=== PATIENT | female | born 1955 | race Caucasian/White ===

== ENCOUNTER 2018-11-16 14:24 | Emergency (ER) | payer OTHER ==
[2018-11-16 14:33] VITALS: BP 154/82; PULSE 76; TEMP 98.4; BMI 36.6
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
== END 2018-11-16 16:57 | disposition home or self-care (01) ==
LOC: JERFT 14:24
DX: R51 Headache (principal)
CPT/HCPCS: 70450-TC; 99281-25

== ENCOUNTER 2019-02-16 16:42 | Emergency (ER) | payer OTHER ==
--- NOTE | 2019-02-16 16:58 | PDOC ---
Rapid Medical Evaluation Time Seen by Provider: 02/16/19 16:57 Medical Evaluation: Allergies Allergy/AdvReac Type Severity Reaction Status Date / Time gabapentin AdvReac Severe Swelling Verified 02/16/19 16:56 02/16/19 16:57 HPI: R sided jaw pain with chewing x 1 day PE: No gross deficits ORDERS: Nothing Discharge Disposition - Diagnosis TMJ (temporomandibular joint syndrome) - Referrals - Patient Instructions - Post Discharge Activity
[2019-02-16 17:00] VITALS: BP 138/80; PULSE 74; TEMP 98.2; BMI 32.9
[2019-02-16] MEDS ORDERED: NAPROXEN 500 MG TABLET (FP) PO ONE (17:24)
[2019-02-16] MEDS ORDERED: NAPROXEN 500 MG TABLET (FP) ONE (17:25)
--- NOTE | 2019-02-16 18:02 | PDOC ---
History of Present Illness - General Chief Complaint: Pain Stated Complaint: PAIN Time Seen by Provider: 02/16/19 16:57 History Source: Patient Exam Limitations: No Limitations - History of Present Illness Initial Comments: 02/16/19 18:04 HISTORY OF PRESENT ILLNESS: This 64-year-old woman denies medical history presents emergency department for evaluation of right-sided jaw pain progressing over 2 days. Patient states pain worsens when she tries to eat or chew on solid foods. She reports the pain prevents her mouth from closing correctly. Patient reports she cries her teeth which she feels nervous and has been under a lot of psychological stress lately. Patient is unaware if she is grinding her teeth but reports in the past she has had similar pains from grinding her teeth. She denies fevers or chills. No recent travel or sick contacts. PAST MEDICAL HISTORY: Denies past medical history SURGICAL HISTORY: Denies ALLERGIES: No known drug allergies REVIEW OF SYSTEMS General/Constitutional: Denies fever or chills. Denies weakness, weight change. HEENT: see HPI Cardiovascular: Denies chest pain or shortness of breath. Respiratory: Denies cough, wheezing, or hemoptysis. Gastrointestinal: Denies nausea, vomiting, diarrhea or constipation. Denies rectal bleeding. Genitourinary: Denies dysuria, frequency, or change in urination. Musculoskeletal: Denies joint or muscle swelling or pain. Denies neck or back pain. Skin and breasts: Denies rash or easy bruising. Neurologic: Denies headache, vertigo, loss of consciousness, or loss of sensation. Psychiatric: Denies depression or anxiety. Endocrine: Denies increased thirst. Denies abnormal weight change. Hematologic/Lymphatic: Denies anemia, easy bleeding, or history of blood clots. Allergic/Immunologic: Denies hives or skin allergy. Denies latex allergy. PHYSICAL EXAM General Appearance: Well-appearing, appropriately dressed. No apparent distress , no intoxication. HEENT: EOMI, PERRLA, normal ENT inspection, normal voice, TMs normal, pharynx normal. No conjunctival pallor. No photophobia, scleral icterus. Taking rates amendable and 1 solid unit. No deformities, crepitus or step offs present upon palpation of the mandible. Tenderness over the masseter muscle from insertion point of the mandible to zygoma. Neck: Supple. Trachea midline. No tenderness, rigidity, carotid bruit, stridor , lymphadenopathy, or thyromegaly. Respiratory/Chest: Lungs CTAB. No shortness of breath, chest tenderness, respiratory distress, accessory muscle use. No crackles, rales, rhonchi, stridor , wheezing, dullness Cardiovascular: RRR. S1, S2. No JVD, murmur, bradycardia, tachycardia. Musculoskeletal/Extremities: Normal inspection. FROM of all extremities, normal capillary refill. Pelvis Stable. No CVA tenderness. No tenderness to extremities, pedal edema, swelling, erythema or deformity. Neurologic: mill operator helper II-XII intact. Fully oriented, alert. Appropriate mood/affect. Motor strength 5/5. No appreciable EOM palsy, facial droop or sensory deficit. Past History - Past Medical History Allergies/Adverse Reactions: Allergies Allergy/AdvReac Type Severity Reaction Status Date / Time gabapentin AdvReac Severe Swelling Verified 02/16/19 16:56 Home Medications: Ambulatory Orders Butalb/Acetaminophen/Caffeine [Fioricet 50-300-40 mg Capsule] 1 each PO Q6H PRN #20 capsule 11/16/18 Loratadine 10 mg PO DAILY #10 capsule 11/16/18 COPD: No - Surgical History Abdominal Surgery: Yes (X2 hernia repair) - Suicide/Smoking/Psychosocial Hx Smoking Status: No Smoking History: Never smoked Number of Cigarettes Smoked Daily: 0 Hx Alcohol Use: No Drug/Substance Use Hx: No *Physical Exam - Vital Signs Last Vital Signs Temp Pulse Resp BP Pulse Ox 98.2 F 74 18 138/80 99 02/16/19 16:57 02/16/19 16:57 02/16/19 16:57 02/16/19 16:57 02/16/19 16:57 Medical Decision Making - Medical Decision Making 02/16/19 18:02 A/P: 64-year-old woman with TMJ pain disorder Naprosyn 500 mg orally now Discharge home instructions for rest, soft diet and follow-up with dentist for grinding of her teeth *DC/Admit/Observation/Transfer Diagnosis at time of Disposition: TMJ (temporomandibular joint syndrome) - Discharge Dispostion Disposition: HOME Condition at time of disposition: Fair Decision to Admit order: No - Referrals - Patient Instructions Additional Instructions: Take Aleve as directed by manufacturers instructions. Take this medicine twice a day and to not take Motrin while taking this medicine. Eat soft foods until pain has resolved. Avoid chewing gum. Try chewing on the left side of her mouth. If symptoms do not improve in 7 days call your dentist for reevaluation. Thank you very much for choosing us to provide your emergent health care needs. - Post Discharge Activity
== END 2019-02-16 17:27 | disposition home or self-care (01) ==
LOC: JERFT 16:42
DX: M26.609 Unspecified temporomandibular joint disorder, unspecified side (principal)
CPT/HCPCS: 99281-25

== ENCOUNTER 2021-11-18 04:04 | Inpatient (IN) | payer OTHER ==
[2021-11-18] MEDS ORDERED: ONDANSETRON 4 MG/2 ML VIAL IVPUSH ONE (04:06)
[2021-11-18] MEDS ORDERED: KETOROLAC TROMETHAMINE 15 MG/ML VIAL IVPUSH ONE (04:06)
[2021-11-18] MEDS ORDERED: SODIUM CHLORIDE 0.9% 500 ML INFUS.BAG IV ONE (04:06)
[2021-11-18] MEDS ORDERED: FAMOTIDINE 20 MG/50 ML IVPB 20 MG/50 ML MG IVPB ONE (04:07)
[2021-11-18] MEDS ORDERED: ONDANSETRON 4 MG/2 ML VIAL ONE (04:14)
[2021-11-18] MEDS ORDERED: KETOROLAC TROMETHAMINE 15 MG/ML VIAL ONE (04:14)
[2021-11-18] MEDS ORDERED: FAMOTIDINE/PF 20 MG/2 ML VIAL ONE (04:16)
[2021-11-18 04:48] LABS: BASO % 0.4 % (0-2.0); HEMATOCRIT 40.1 % (32.4-45.2); HEMOGLOBIN 13.5 GM/dL (10.7-15.3); LYMPH % 5.1 % (8-40); MCH 30.3 pg (25.7-33.7); MCHC 33.6 g/dl (32.0-36.0); MEAN PLT VOLUME 8.9 fl (7.5-11.1); MONO % 5.8 % (3.8-10.2); NEUT % 87.7 % (42.8-82.8); PLATELET COUNT 291 10^3/uL (134-434); RBC 4.46 M/mm3 (3.60-5.2); RDW 14.7 % (11.6-15.6)
[2021-11-18 05:06] LABS: BLOOD UREA NITROGEN 27.4 mg/dL (7-18); CALCIUM 9.4 mg/dL (8.5-10.1)
[2021-11-18 05:07] LABS: ALBUMIN 3.4 g/dl (3.4-5.0)
[2021-11-18 05:09] LABS: CREATININE 0.9 mg/dL (0.55-1.3)
[2021-11-18 05:11] LABS: BILIRUBIN,TOTAL 0.5 mg/dL (0.2-1)
[2021-11-18] MEDS ORDERED: ACETAMINOPHEN 1000 MG/100 ML BAG IVPB PRN (12:16)
[2021-11-18] MEDS ORDERED: ACETAMINOPHEN 1000 MG/100 ML BAG IVPB ONE (12:49)
[2021-11-18] MEDS ORDERED: ACETAMINOPHEN INJECTION 100 ML IVPB ONE (12:56)
[2021-11-18] MEDS ORDERED: ONDANSETRON 4 MG/2 ML VIAL IVPUSH PRN (18:31)
[2021-11-18] MEDS: SODIUM CHLORIDE 1,000 ML IV SCH (23:52)
[2021-11-19] MEDS ORDERED: LEVOTHYROXINE NA 25 MCG TABLET (FP) PO SCH (07:00)
[2021-11-19 09:16] LABS: HEMATOCRIT 35.8 % (32.4-45.2); HEMOGLOBIN 12.1 GM/dL (10.7-15.3); MCH 30.4 pg (25.7-33.7); MCHC 33.8 g/dl (32.0-36.0); MEAN PLT VOLUME 8.6 fl (7.5-11.1); PLATELET COUNT 257 10^3/uL (134-434); RBC 3.98 M/mm3 (3.60-5.2); RDW 14.7 % (11.6-15.6)
[2021-11-19 09:33] LABS: BLOOD UREA NITROGEN 19.9 mg/dL (7-18); CALCIUM 8.5 mg/dL (8.5-10.1)
[2021-11-19 09:36] LABS: ALBUMIN 2.5 g/dl (3.4-5.0); CREATININE 0.7 mg/dL (0.55-1.3)
[2021-11-19 09:38] LABS: BILIRUBIN,TOTAL 0.4 mg/dL (0.2-1); TOT PROT 5.5 g/dl (6.4-8.2)
[2021-11-19] MEDS: LEVOTHYROXINE SODIUM 100 MCG VIAL IVPUSH SCH (09:40)
[2021-11-19] MEDS ORDERED: CEFAZOLIN 2 GM in DEXTROSE 5%-WATER - 100 ML IVPB SCH (10:00)
[2021-11-19] MEDS ORDERED: PREGABALIN 50 MG CAPSULE PO SCH (10:00)
[2021-11-19] MEDS ORDERED: PATIENT'S OWN MEDICATION (NON-FORMULARY) (Atogepant [Qulipta] 60 MG Tablet) PO SCH (10:00)
[2021-11-19] MEDS ORDERED: ceFAZolin 2 GRAM PREMIX BAG IVPB SCH (10:00)
[2021-11-19] MEDS: SODIUM CHLORIDE 1,000 ML IV SCH ×3 (11:21→18:11)
[2021-11-19] MEDS ORDERED: LACTATED RINGERS SOLUTION 1,000 ML/1,000 ML INFUS.BAG IV SCH (14:15)
[2021-11-19] MEDS ORDERED: BACLOFEN 10 MG TABLET (FP) PO PRN (15:56)
[2021-11-20 09:18] LABS: BASO % 0.5 % (0-2.0); HEMATOCRIT 39.9 % (32.4-45.2); HEMOGLOBIN 13.2 GM/dL (10.7-15.3); LYMPH % 37.9 % (8-40); MCH 30.1 pg (25.7-33.7); MCHC 33.1 g/dl (32.0-36.0); MEAN PLT VOLUME 9.2 fl (7.5-11.1); NEUT % 49.6 % (42.8-82.8); PLATELET COUNT 295 10^3/uL (134-434); RBC 4.38 M/mm3 (3.60-5.2); RDW 14.4 % (11.6-15.6); WHITE BLOOD COUNT 3.3 K/mm3 (4.0-10.0)
[2021-11-20 09:44] LABS: CALCIUM 9.5 mg/dL (8.5-10.1)
[2021-11-20 09:45] LABS: BLOOD UREA NITROGEN 10.6 mg/dL (7-18)
[2021-11-20 09:49] LABS: CREATININE 0.7 mg/dL (0.55-1.3)
[2021-11-20 09:50] LABS: BILIRUBIN,TOTAL 0.3 mg/dL (0.2-1); TOT PROT 6.5 g/dl (6.4-8.2)
[2021-11-20] MEDS ORDERED: PREGABALIN 50 MG CAPSULE PO SCH (10:00)
[2021-11-20 10:05] LABS: ALBUMIN 3.1 g/dl (3.4-5.0)
[2021-11-20] MEDS: LEVOTHYROXINE SODIUM 100 MCG VIAL IVPUSH SCH (10:27)
[2021-11-20] MEDS ORDERED: PROPOFOL 20 ML ONE (11:46)
[2021-11-20] MEDS ORDERED: DEXAMETHASONE SOD PHOSPHATE 4 MG/1 ML VIAL ONE (11:46)
[2021-11-20] MEDS ORDERED: LIDOCAINE HCL/PF 2% SDV 5ML VIAL ONE (11:46)
[2021-11-20] MEDS ORDERED: ONDANSETRON 4 MG/2 ML VIAL ONE (11:46)
[2021-11-20] MEDS ORDERED: MIDAZOLAM HCL 2 MG/2 ML SINGLE DOSE VIAL ONE (11:47)
[2021-11-20] MEDS ORDERED: ROCURONIUM BROMIDE 100 MG/10 ML VIAL ONE (11:50)
[2021-11-20] MEDS ORDERED: BUPIVACAINE HCL/PF 0.5% (5MG/ML) 10 ML VIAL ONE (12:00)
[2021-11-20] MEDS ORDERED: BUPIVACAINE HCL/PF 0.5% (5MG/ML) 10 ML VIAL IJ ONE (12:42)
[2021-11-20] MEDS ORDERED: NEOSTIGMINE METHYLSULFATE 0.5 MG/ML - 10 ML MDV ONE (13:28)
[2021-11-20] MEDS ORDERED: BACLOFEN 10 MG TABLET (FP) PO PRN (15:02)
[2021-11-20] MEDS ORDERED: ONDANSETRON 4 MG/2 ML VIAL IVPUSH PRN ×2 (15:02→15:07)
[2021-11-20] MEDS ORDERED: LACTATED RINGERS SOLUTION 1,000 ML IV SCH (15:15)
[2021-11-20 17:12] VITALS: BMI 36.8
[2021-11-20] MEDS ORDERED: PANTOPRAZOLE SODIUM 40 MG VIAL IVPUSH ONE (17:52)
[2021-11-20] MEDS: SODIUM CHLORIDE 1,000 ML IV SCH ×2 (17:55→18:05)
[2021-11-20] MEDS: KETOROLAC TROMETHAMINE 15 MG/ML VIAL IVPUSH PRN (18:05)
[2021-11-20] MEDS ORDERED: ACETAMINOPHEN 500 MG TABLET (FP) PO PRN (20:30)
[2021-11-21] MEDS: SODIUM CHLORIDE 1,000 ML IV SCH (04:59)
[2021-11-21] MEDS: KETOROLAC TROMETHAMINE 15 MG/ML VIAL IVPUSH PRN ×2 (05:01→12:08)
[2021-11-21 09:57] LABS: BASO % 0.3 % (0-2.0); EOS % 0.2 % (0-4.5); HEMATOCRIT 33.9 % (32.4-45.2); HEMOGLOBIN 11.6 GM/dL (10.7-15.3); LYMPH % 27.6 % (8-40); MCH 30.8 pg (25.7-33.7); MCHC 34.2 g/dl (32.0-36.0); MEAN PLT VOLUME 8.7 fl (7.5-11.1); MONO % 9.4 % (3.8-10.2); NEUT % 62.5 % (42.8-82.8); PLATELET COUNT 248 10^3/uL (134-434); RBC 3.77 M/mm3 (3.60-5.2); RDW 14.4 % (11.6-15.6); WHITE BLOOD COUNT 6.2 K/mm3 (4.0-10.0)
[2021-11-21] MEDS: PANTOPRAZOLE 40 MG TABLET PO SCH (10:18)
[2021-11-21 10:20] LABS: CALCIUM 8.8 mg/dL (8.5-10.1)
[2021-11-21 10:21] LABS: ALBUMIN 2.5 g/dl (3.4-5.0); BLOOD UREA NITROGEN 12.6 mg/dL (7-18)
[2021-11-21 10:24] LABS: CREATININE 0.7 mg/dL (0.55-1.3)
[2021-11-21 10:26] LABS: BILIRUBIN,TOTAL 0.3 mg/dL (0.2-1); TOT PROT 5.4 g/dl (6.4-8.2)
[2021-11-21] MEDS: LEVOTHYROXINE SODIUM 100 MCG VIAL IVPUSH SCH (11:42)
[2021-11-21] MEDS: oxyCODONE HCL 5 MG TABLET PO PRN (19:46)
[2021-11-22] MEDS: oxyCODONE HCL 5 MG TABLET PO PRN ×2 (01:16→10:22)
[2021-11-22 07:00] VITALS: TEMP 98.6
[2021-11-22 10:18] VITALS: BP 137/64; PULSE 65
[2021-11-22] MEDS: PANTOPRAZOLE 40 MG TABLET PO SCH (10:22)
[2021-11-22] MEDS: LEVOTHYROXINE SODIUM 100 MCG VIAL IVPUSH SCH ×2 (10:23→10:31)
== END 2021-11-22 14:00 | disposition home or self-care (01) | DRG 418 ==
LOC: JER 04:04 → JERBED 10:51 → INTOOBSV 10:51 → UNDOADMOB 10:51 → JERBED 14:41 → J8W 20:37 → OBSVTOIN 11-19 12:46
PROVIDERS: ADMIT Internal Medicine; ATTEND Internal Medicine
PROC: 0FT44ZZ Resection of Gallbladder, Percutaneous Endoscopic Approach (ICD-10-PCS; principal; 2021-11-20 11:30)
DX: K81.0 Acute cholecystitis (principal); K82.1 Hydrops of gallbladder; E03.9 Hypothyroidism, unspecified; G43.909 Migraine, unspecified, not intractable, without status migrainosus; R11.2 Nausea with vomiting, unspecified; K76.89 Other specified diseases of liver; N85.8 Other specified noninflammatory disorders of uterus
CPT/HCPCS: 36415; 71045-TC-FY; 74177-TC; 76705-TC; 78226-TC; 80053; 83605; 83690; 84484; 85025; 85027; 88304-TC; 93005; 93010; 94760; 97116-GP; 97161-GP; 99285-25; A9537; C9803-CS; G0378; U0003; U0005

== ENCOUNTER 2021-11-29 18:50 | Emergency (ER) | payer OTHER ==
[2021-11-29 19:29] VITALS: BP 120/69; PULSE 72; TEMP 97.9; BMI 37.8
[2021-11-29] MEDS ORDERED: ACETAMINOPHEN 500 MG TABLET (FP) PO ONE (20:39)
[2021-11-29] MEDS ORDERED: IBUPROFEN 400 MG TABLET (FP) PO ONE ×3 (20:40→21:51)
[2021-11-29] MEDS ORDERED: ACETAMINOPHEN 325 MG TABLET (FP) ONE ×2 (20:46→21:51)
== END 2021-11-29 23:08 | disposition home or self-care (01) ==
LOC: JER 18:50
DX: M79.605 Pain in left leg (principal); M79.89 Other specified soft tissue disorders
CPT/HCPCS: 93971-TC; 99283-25